=== PATIENT | male | born 1960 | race Caucasian/White ===

== ENCOUNTER 2018-05-23 21:09 | Inpatient (IN) ==
[2018-05-24] MEDS ORDERED: Bisacodyl 10 MG Supp RECTAL PRN (03:38)
--- NOTE | 2018-05-24 06:11 | P.HPIM ---
History of Present Illness [facility]: [facility] Primary Care Physician: No Primary Care Physician Chief Complaint: "My butt hurts" History of Present Illness: Mr. Stewart is a 58-year-old male with a history of hypertension, and undiagnosed movement disorder who was transferred back from [facility] where he underwent emergency repair of thoracic aortic dissection on 05/10/2018 (Dr. Ashraf). 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 The patient is seen on the unit shortly after arrival and following extensive record review from [facility]. He reports "my butt hurts" from sitting. He reports no knowledge of having an embolic stroke postoperatively from his thoracic aortic aneurysm repair. He reports his left-sided weakness is chronic for the past 5-6 years from a "pulled pectoral muscle". He does have right upper extremity tremors that seem to be present sometimes and not present at other times and have little association with intention. He denies any recent chest pain, shortness of breath, fevers, chills, nausea, vomiting, or diarrhea. After extensive review of his medical record, I was able to locate his MRI report which showed multiple foci of restricted diffusion, largest in the right posterior frontal lobe measuring approximately 1 cm in greatest diameter with multiple other small foci of restricted diffusion right temporal and occipital, left temporal, high left posterior frontal, and high left parietal suggesting a proximal embolic shower possibly related to patient's recent aortic surgery. Also noted were multiple, at least 10-11, foci of chronic microhemorrhage bilaterally. MRA of head and neck were normal. Dated 05/14/18. Inpatient Certification: I certify that the inpatient services were ordered in accordance with Medicare regulations governing the order. This includes certification that hospital inpatient services are reasonable and necessary and in the case of services not specified as inpatient-only under 42 CFR 419.22(n), that they are appropriately provided as inpatient services in accordance to with the 2-midnight benchmark under 43 CFR 412.3(e) Estimated Total Length of Stay (Days): 3 Plans for Post Hospital Care: Not yet determined Review of Systems All other systems reviewed negative except as stated in HPI [facility] - History History Provided By: Patient - Medical History Medical History: Medical History (Last Updated 05/24/18 @ 05:25 by KRISSY Cyr) HTN (hypertension) (Acute) Alcohol abuse Embolic stroke Onset Date: ~05/14/18 Movement disorder Thoracic aortic dissection Anxiety - Surgical History Surgical History: Surgical History (Last Updated 05/24/18 @ 04:24 by KRISSY Cyr) History of ascending aortic replacement - Family History Family History: Family History (Last Updated 05/24/18 @ 05:37 by KRISSY Cyr) Uncle Myocardial infarction Grandparent CVA (cerebral vascular accident) Father CVA (cerebral vascular accident) - Social History I have reviewed the patient's Social History: Yes - Tobacco History Second Hand Smoke Exposure: No Smoking Status: Former smoker Tobacco Type: Smokeless Tobacco - Alcohol History How Often Do You Have a Drink Containing Alcohol: Never - Substance Use History Substance History: No History of Abuse - Immunization History Hx Influenza Vaccine This Season: Yes Medications and Allergies Active Medications: Active Medications Acetaminophen (Tylenol) 650 mg PO Q4H PRN PRN Reason: Temp > 100.4 Alprazolam (Xanax) 0.5 mg PO BID PRN PRN Reason: ANXIETY Aspirin (Aspirin Chew) 81 mg PO DAILY [facility] Atorvastatin Calcium (Lipitor) 40 mg PO HS [facility] Bisacodyl (Dulcolax Supp) 10 mg RECTAL DAILY PRN PRN Reason: SEVERE CONSITIPATION Docusate Sodium (Colace) 100 mg PO BID [facility] Furosemide (Lasix) 20 mg PO DAILY [facility] Gabapentin (Neurontin) 200 mg PO TID [facility] Heparin Sodium (Porcine) (Heparin Inj) 5,000 units SQ Q8HR [facility] Lactulose (Lactulose Liq) 15 ml PO TID [facility] Melatonin (Melatonin) 5 mg PO HS PRN PRN Reason: INSOMNIA Multivitamins (Theragran) 1 tab PO DAILY [facility] Niacin (Niacin) 50 mg PO HS [facility] Ondansetron HCl (Zofran Inj) 4 mg IV.PUSH Q6H PRN PRN Reason: NAUSEA OR VOMITING Oxycodone HCl (Roxicodone) 5 mg PO Q4H PRN PRN Reason: pain > 3 Last Admin: 05/24/18 04:45 Dose: 5 mg Potassium Chloride (Klor-Con 10) 20 meq PO DAILY [facility] Propranolol HCl (Inderal) 30 mg PO TID [facility] Sennosides (Senokot) 17.2 mg PO Q12H PRN PRN Reason: Moderate Constipation Simethicone (Mylicon Chew) 80 mg PO Q8H PRN PRN Reason: FLATULENCE Sodium Chloride (Ns Flush) 2 ml IV.FLUSH BID [facility] Sodium Chloride (Ns Flush) 2 ml IV.FLUSH PRN PRN PRN Reason: FLUSH AFTER USING IV ACCESS Vitamin D (Vitamin D3) 400 unit PO DAILY [facility] Allergies Allergy/AdvReac Type Severity Reaction Status Date / Time No Known Allergies Allergy Verified 05/10/18 13:01 Home Medications Medication Instructions Recorded Confirmed Type No Known Home Medications 05/10/18 05/10/18 History Exam Vital signs: Intake & Output 05/23/18 05/23/18 05/24/18 06:59 18:59 06:59 Weight 83.6 kg Other: Weight On Admission 83.6 kg Narrative: GENERAL: This is a well-nourished, well-developed patient, with right upper extremity tremor. SKIN: Cool and dry. Midsternal incision with wound edges well approximated no signs of infection. Bilateral lower extremities with dry skin noted. HEAD: Atraumatic. Normocephalic. EYES: No scleral icterus. No injection or drainage. ENT: Nose without bleeding, purulent drainage. NECK: Trachea midline. No JVD or lymphadenopathy. CARDIOVASCULAR: Regular rate and rhythm without murmurs, gallops, or rubs. RESPIRATORY: Breath sounds diminished at bases but equal bilaterally. No wheezes , rales, or rhonchi. GASTROINTESTINAL: Abdomen soft, non-tender, nondistended. No guarding. MUSCULOSKELETAL: Extremities without clubbing, cyanosis, or edema. No calf tenderness. NEUROLOGICAL: Awake and alert. Right upper extremity tremor -intermittent. Left-sided weakness. Normal speech. PSYCHIATRIC: Anxious but cooperative. . Caprini VTE Risk Assessment Caprini VTE Risk Assessment: Moderate/High Risk (score >= 2) Caprini Risk Assessment Model: Point Value = 1 Point Value = 2 Point Value = 3 Point Value = 5 Age 41-60 Minor surgery BMI > 25 kg/m2 Swollen legs Varicose veins or History of unexplained or recurrent spontaneous Oral contraceptives or hormone replacement Sepsis (< 1 month) Serious lung disease, including pneumonia (< 1 month) Abnormal pulmonary function Acute myocardial infarction Congestive heart failure (< 1 month) History of inflammatory bowel disease Medical patient at bed rest Age 61-74 Arthroscopic surgery Major open surgery (> 45 min) Laparoscopic surgery (> 45 min) Malignancy Confined to bed (> 72 hours) Immobilizing plaster cast Central venous access Age >= 75 History of VTE Family history of VTE Factor V Leiden Prothrombin [id number] Lupus anticoagulant Anticardiolipin antibodies Elevated serum homocysteine Heparin-induced thrombocytopenia Other congenital or acquired thrombophilia Stroke (< 1 month) Elective arthroplasty Hip, pelvis, or leg fracture Acute spinal cord injury (< 1 month) Prophylaxis Regimen: Total Risk Factor Score Risk Level Prophylaxis Regimen 0-1 Low Early ambulation 2 Moderate Order ONE of the following: *Sequential Compression Device (SCD) *Heparin 5000 units SQ BID 3-4 Higher Order ONE of the following medications: *Heparin 5000 units SQ TID *Enoxaparin/Lovenox 40 mg SQ daily (WT < 150 kg, CrCl > 30 mL/min) *Enoxaparin/Lovenox 30 mg SQ daily (WT < 150 kg, CrCl > 10-29 mL/min) *Enoxaparin/Lovenox 30 mg SQ BID (WT < 150 kg, CrCl > 30 mL/min) AND/OR *Sequential Compression Device (SCD) 5 or more Highest Order ONE of the following medications: *Heparin 5000 units SQ TID (Preferred with Epidurals) *Enoxaparin/Lovenox 40 mg SQ daily (WT < 150 kg, CrCl > 30 mL/min) *Enoxaparin/Lovenox 30 mg SQ daily (WT < 150 kg, CrCl > 10-29 mL/min) *Enoxaparin/Lovenox 30 mg SQ BID (WT < 150 kg, CrCl > 30 mL/min) AND *Sequential Compression Device (SCD) Assessment and Plan - Plan Mr. Stewart is a 58-year-old male with a history of hypertension, and undiagnosed movement disorder who was transferred back from [facility] where he underwent emergency repair of thoracic aortic dissection on 05/10/2018 (Dr. Ashraf). 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 S/P Thoracic aortic aneurysm repair by Dr. Ashraf at 05-10-18 -Continue medications as recommended on discharge -Monitor vital signs -Oxycodone 5 mg every 4 hours as needed for pain with 5 mg every 6 hours as needed for breakthrough pain -start weaning narcotics -He will need to follow-up with Dr. Ashraf per recommendations from [facility] -Cardiac diet Embolic CVA -From [facility]: MRI report which showed multiple foci of restricted diffusion, largest in the right posterior frontal lobe measuring approximately 1 cm in greatest diameter with multiple other small foci of restricted diffusion right temporal and occipital, left temporal, high left posterior frontal, and high left parietal suggesting a proximal embolic shower possibly related to patient' s recent aortic surgery. Also noted were multiple, at least 10-11, foci of chronic microhemorrhage bilaterally. MRA of head and neck were normal. Dated 05/14/18. -Consult neurology -appreciate assistance with further recommendations -Consult physical therapy, occupational therapy, and speech therapy -Continuous cardiac telemetry to monitor for arrhythmia -Out of bed with assistance undiagnosed movement disorder/tremor -The patient was evaluated for seizures at and was even started on Cerebyx at one point in time and then discontinued following EEG testing/seizure r/o -Patient attributes tremors to anxiety and Xanax as needed was restarted from [facility] -Can follow-up with neurology as an outpatient for further evaluation Hypertension -Continue Inderal from [facility] -Monitor trends in blood pressure readings and adjust treatments as indicated DVT prophylaxis -Continue heparin 5000 units every 8 hours Case management consult to assist with discharge planning H&P: Quality - VTE Deep Vein Thrombosis/Pulmonary Embolism Present on Admission: No
[2018-05-24] MEDS: Heparin - SQ 10,000 UNITS/ML Vial SQ SCH ×4 (06:35→22:01)
[2018-05-24] MEDS: ALPRAZolam 0.5 MG Tablet PO PRN ×2 (08:38→20:32)
[2018-05-24] MEDS: Gabapentin 100 MG Capsule PO SCH ×3 (08:38→17:52)
[2018-05-24] MEDS: Docusate Sodium 100 MG Capsule PO SCH ×2 (08:39→20:36)
[2018-05-24] MEDS: Furosemide 20 MG Tablet PO SCH (08:40)
[2018-05-24] MEDS: Simethicone 80 MG Chew Tablet PO PRN (09:07)
[2018-05-24 11:15] LABS: Baso # (Auto) 0.1 th/mm3 (0.0-0.2); Baso % (Auto) 0.9 % (0.0-2.0); Eos # (Auto) 0.1 th/mm3 (0.0-0.4); Hematocrit 35.1 % (39.0-51.0); Hemoglobin 12.2 gm/dL (13.0-17.0); Lymph # (Auto) 1.5 th/mm3 (1.0-4.8); Lymph % (Auto) 10.3 % (9.0-44.0); Mean Corpuscular HGB Conc 34.8 % (32.0-36.0); Mean Corpuscular Volume 91.9 fL (80.0-100.0); Mean Platelet Volume 7.9 fL (7.0-11.0); Mono # (Auto) 1.3 th/mm3 (0.0-0.9); Mono % (Auto) 8.7 % (0.0-8.0); Neut # (Auto) 11.8 th/mm3 (1.8-7.7); Neut % (Auto) 79.1 % (16.0-70.0); Platelet Count 505 th/mm3 (150-450); Red Blood Count 3.82 mil/mm3 (4.50-5.90); Red Cell Distribution Width 13.4 % (11.6-17.2); White Blood Count 14.9 th/mm3 (4.0-11.0)
[2018-05-24 11:36] LABS: Albumin 2.9 g/dL (3.4-5.0); Anion Gap 9 meq/L (5-15); Aspartate Aminotransferase 39 U/L (15-37); Blood Urea Nitrogen 13 mg/dL (7-18); Calcium 8.7 mg/dL (8.5-10.1); Chloride 101 meq/L (98-107); Glomerular Filtration Rate Greater Than 89 mL/min (>89); Glucose,Random 115 mg/dL (74-106); Potassium 4.2 meq/L (3.5-5.1); Sodium 138 meq/L (136-145)
[2018-05-24 11:40] LABS: Alanine Aminotransferase 73 U/L (12-78); Alkaline Phosphatase 119 U/L (45-117); Total Protein 7.6 g/dL (6.4-8.2)
[2018-05-24] MEDS: Acetaminophen 325 MG Tablet PO PRN (12:13)
--- NOTE | 2018-05-24 13:09 | P.PNIM ---
Subjective Interval history: Patient is laying down in bed with family at bedside. Currently he does not have any complaints. Physical Exam Vital signs: Vital Signs 05/24/18 02:30 05/24/18 05:00 05/24/18 06:32 Temperature 98.2 F Pulse Rate 79 64 Respiratory Rate 17 18 20 Blood Pressure 127/77 132/72 Pulse Oximetry 95 96 05/24/18 08:00 05/24/18 12:00 Temperature 97.4 F L 97.6 F Pulse Rate 74 68 Respiratory Rate 17 17 Blood Pressure 147/82 H 111/60 Pulse Oximetry 96 94 L Intake & Output 05/23/18 05/24/18 05/24/18 18:59 06:59 18:59 Intake Total 300 / 300 Output Total 2250 / 2250 Balance -1949 / -1949 Weight 82.7 kg Intake: Oral 300 / 300 Output: Urine 2250 / 2250 Other: Date of Last Bowel Movement 05/23/18 Weight On Admission 83.6 kg Narrative: General he is lying down in bed. HEENT extraocular movements are intact, clear oropharyngeal mucosa, no JVD Cardiovascular S1-S2 audible, vertical well healing wound on the center of the patient's chest. Respiratory clear to auscultation bilaterally Abdomen soft, nontender, nondistended, normal bowel sounds Extremities no edema 2+ distal pulses in bilateral upper and lower extremities Neuro patient moves all 4 extremities, The patient has a resting tremor of bilateral upper extremities noted on physical examination. Cerebellar signs are intact. Sensation is intact in both upper and lower extremities. When asked to stop moving his hands the patient is able to stop the tremors. Negative Babinski. Results - Labs CBC & Chem 7: 05/24/18 10:22 05/24/18 10:22 Laboratory Results - last 24 hr 05/24/18 05/24/18 10:22 10:22 WBC 14.9 H RBC 3.82 L Hgb 12.2 L Hct 35.1 L MCV 91.9 MCH 32.0 MCHC 34.8 RDW 13.4 Plt Count 505 H D MPV 7.9 Neut % (Auto) 79.1 H Lymph % (Auto) 10.3 [place] % (Auto) 8.7 H Eos % (Auto) 1.0 Baso % (Auto) 0.9 Neut # (Auto) 11.8 H Lymph # (Auto) 1.5 [place] # (Auto) 1.3 H Eos # (Auto) 0.1 Baso # (Auto) 0.1 WBC Differential . Differential Comment Auto diff final Sodium 138 Potassium 4.2 Chloride 101 Carbon Dioxide 28.0 Anion Gap 9 BUN 13 Creatinine 0.79 Estimated GFR Greater than 89 Random Glucose 115 H Calcium 8.7 Total Bilirubin 0.4 AST 39 H ALT 73 Alkaline Phosphatase 119 H Total Protein 7.6 Albumin 2.9 L Assessment and Plan - Plan Patient is a 58-year-old male with a diagnosis of hypertension, undiagnosed movement disorder. The patient was transferred back from [facility] where he underwent emergency repair of a thoracic aortic dissection on 05/10/[address] Ashraf. 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 As per documentation MRI report shows restricted areas of diffusion largest in the right posterior frontal lobe measuring approximately 1 cm as well as multiple other areas of the brain. MRA of the head and neck were normal. 1. Status post thoracic aortic aneurysm repair on 05/10/2018 Procedure done at [facility] by Dr. Ashraf. The patient vital signs and hemoglobin are stable. Patient was evaluated by speech therapy, recommendations are thin liquids and regular diet. Continue aspirin, statin. 2. Embolic CVA Patient's MRI showed the findings mentioned above. Neurology consulted, I would appreciate their recommendations. Physical therapy and occupational therapy evaluation is pending Continue to monitor on telemetry. Continue aspirin, statin 3. Undiagnosed movement disorder/tremor Patient has a resting tremor of bilateral upper extremities on my physical examination. As per the augmentation the patient was evaluated for seizures at [facility]. Patient claims that his tremors are due to anxiety which she has had over the past couple of years. We will await recommendations from neurology. Continue gabapentin. Continue Xanax. 4. Hypertension Patient currently on propanolol 3 times daily. Blood pressures currently under control. We will continue to monitor his blood pressure and adjust his medications if needed. DVT prophylaxis, the patient is currently on heparin. Discharge planning, the case will be discussed with case management.
--- NOTE | 2018-05-24 13:55 | MB ---
cc: Lizabeth Mercado MD DATE: 05/24/2018 REASON FOR CONSULTATION: Tremor, right upper extremity. HISTORY OF PRESENT ILLNESS: The patient is a 58-year-old man with a history of hypertension, undiagnosed movement disorder, recent emergent thoracic aortic dissection repair on 05/10/2018, postoperative embolic stroke with some left-sided weakness. The patient was transferred back here for ongoing stabilization. His [id number] is here with him at bedside and states, as well as the patient states, he has had a tremor in the right hand, mostly with rest for at least 2 years. She states that he does ambulate a little flexed forward and at times tends to shuffle. They did not report any tremor in the leg or the contralateral side. He denies having any trouble swallowing. She does admit that he does have a decrease animation of the face, looks like a masked facies. He denies any severe constipation. Denies trouble eating or swallowing food. He was not diagnosed with any type of tremor at [facility]. Hence, neurology is consulted. PHYSICAL EXAMINATION: I see a 58-year-old man lying in bed with decreased blink, mask-like facies. He has some residual left hemiparesis from his stroke, attenuated left nasolabial fold, tongue midline, but he does have increased tone at the right elbow and right wrist with some mild cogwheeling. He does exhibit a tremor at rest that looks pill rolling. When the tremor starts and I ask him to lift his hand up, it ceases, dissipates. On [id number], there is no past pointing. No increased tone on the right leg. No tremor on that side. Gait is withheld at this time. LABORATORY DATA: Reviewed. MEDICATIONS: They have been giving him Xanax b.i.d. p.r.n., baby aspirin, Lipitor. He is on gabapentin as well. IMPRESSION: This is a 58-year-old man with onset tremor of at least 2 years in the right upper extremity. It does look pill rolling and looks very much like a Parkinson-like tremor. He has some other signs of rigidity, facial masking, stooped gait per family. At this point, I think what we should do is to start him on some Sinemet 25/100 three times a day. Certainly, Mirapex or Requip can be considered as well, but I want to see if he improves with the Sinemet. I did tell them and explain to them my thoughts. We will have physical therapy ambulate him and continue working with him and hopefully the medicine will help control his symptoms. I did tell him that it is best to get these medications on an empty stomach. We will be monitoring him while hospitalized and further recommendations will be made. MD FELICITA Pugh/victor manuel , 12:44 PM , 12:52 PM
[2018-05-25] MEDS: Heparin - SQ 10,000 UNITS/ML Vial SQ SCH ×3 (05:49→21:10)
[2018-05-25] MEDS: ALPRAZolam 0.5 MG Tablet PO PRN ×2 (08:35→21:09)
[2018-05-25] MEDS: Gabapentin 100 MG Capsule PO SCH ×3 (08:36→17:39)
[2018-05-25] MEDS: Docusate Sodium 100 MG Capsule PO SCH ×2 (08:36→21:10)
[2018-05-25] MEDS: Furosemide 20 MG Tablet PO SCH (08:36)
--- NOTE | 2018-05-25 10:27 | P.PNIM ---
Subjective Interval history: Patient laying down in bed. In no acute distress. No resting tremor of his upper extremities on evaluation today. Physical Exam Vital signs: Vital Signs 05/24/18 12:00 05/24/18 16:00 05/24/18 20:00 Temperature 97.6 F 97.3 F L 97.3 F L Pulse Rate 68 65 72 Respiratory Rate 17 17 20 Blood Pressure 111/60 94/57 L 120/69 Pulse Oximetry 94 L 95 97 05/24/18 22:01 05/25/18 00:00 05/25/18 03:23 Temperature 97.7 F Pulse Rate 72 Respiratory Rate 20 18 18 Blood Pressure 109/64 Pulse Oximetry 95 05/25/18 04:00 Temperature 97.9 F Pulse Rate 72 Respiratory Rate 18 Blood Pressure 113/59 L Pulse Oximetry 96 Intake & Output 05/24/18 05/25/18 05/25/18 18:59 06:59 18:59 Intake Total 320 / 320 Output Total 1150 / 1150 2100 / 2100 Balance -1150 / -1150 -1780 / -1780 Weight 83.6 kg Intake: Oral 320 / 320 Output: Urine 1150 / 1150 2099 / 2100 Other: # Voids 7 Date of Last Bowel Movement 05/23/18 05/24/18 # Bowel Movements 1 Narrative: General he is lying down in bed. HEENT extraocular movements are intact, clear oropharyngeal mucosa, no JVD Cardiovascular S1-S2 audible, vertical well healing wound on the center of the patient's chest. Respiratory clear to auscultation bilaterally Abdomen soft, nontender, nondistended, normal bowel sounds Extremities no edema 2+ distal pulses in bilateral upper and lower extremities Neuro patient moves all 4 extremities, the patient's resting tremors that were observed yesterday have improved. Cerebellar signs are intact. Sensation is intact in both upper and lower extremities. Results - Labs CBC & Chem 7: 05/24/18 10:22 05/24/18 10:22 Laboratory Results - last 24 hr 05/24/18 05/24/18 10:22 10:22 WBC 14.9 H RBC 3.82 L Hgb 12.2 L Hct 35.1 L MCV 91.9 MCH 32.0 MCHC 34.8 RDW 13.4 Plt Count 505 H D MPV 7.9 Neut % (Auto) 79.1 H Lymph % (Auto) 10.3 [place] % (Auto) 8.7 H Eos % (Auto) 1.0 Baso % (Auto) 0.9 Neut # (Auto) 11.8 H Lymph # (Auto) 1.5 [place] # (Auto) 1.3 H Eos # (Auto) 0.1 Baso # (Auto) 0.1 WBC Differential . Differential Comment Auto diff final Sodium 138 Potassium 4.2 Chloride 101 Carbon Dioxide 28.0 Anion Gap 9 BUN 13 Creatinine 0.79 Estimated GFR Greater than 89 Random Glucose 115 H Calcium 8.7 Total Bilirubin 0.4 AST 39 H ALT 73 Alkaline Phosphatase 119 H Total Protein 7.6 Albumin 2.9 L Assessment and Plan - Plan Patient is a 58-year-old male with a diagnosis of hypertension, undiagnosed movement disorder. The patient was transferred back from [facility] where he underwent emergency repair of a thoracic aortic dissection on 05/10/[address] Ashraf. 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 As per documentation MRI report shows restricted areas of diffusion largest in the right posterior frontal lobe measuring approximately 1 cm as well as multiple other areas of the brain. MRA of the head and neck were normal. 1. Status post thoracic aortic aneurysm repair on 05/10/2018 Procedure done at [facility] by Dr. Ashraf. The patient vital signs and hemoglobin are stable. No significant change from yesterday. Patient was evaluated by speech therapy, recommendations are thin liquids and regular diet. Continue aspirin, statin. 2. Embolic CVA Patient's MRI showed the findings mentioned above. Physical therapy and occupational therapy evaluation is pending Continue to monitor on telemetry. Continue aspirin, statin No change in the patients neuro examination. 3. Undiagnosed movement disorder/tremor Patient had a resting tremor of bilateral upper extremities on my physical examination yesterday, no tremor noted today. His physical examination is concerning for possible parkinsons disease. Carbidopa/Levodopa started. As per the augmentation the patient was evaluated for seizures at [facility]. Neurology following. Continue gabapentin. Continue Xanax. Continue PT 4. Hypertension Patient currently on propanolol 3 times daily. Blood pressures currently under control. We will continue to monitor his blood pressure and adjust his medications if needed. DVT prophylaxis, the patient is currently on heparin. Discharge planning, Patient will need rehab once he is ready for discharge.
[2018-05-25] MEDS: Simethicone 80 MG Chew Tablet PO PRN (14:24)
[2018-05-26] MEDS: Heparin - SQ 10,000 UNITS/ML Vial SQ SCH ×3 (06:03→20:59)
[2018-05-26 07:37] LABS: Baso # (Auto) 0.1 th/mm3 (0.0-0.2); Eos # (Auto) 0.2 th/mm3 (0.0-0.4); Eos % (Auto) 1.7 % (0.0-4.0); Hematocrit 34.1 % (39.0-51.0); Hemoglobin 11.1 gm/dL (13.0-17.0); Lymph # (Auto) 1.7 th/mm3 (1.0-4.8); Lymph % (Auto) 15.2 % (9.0-44.0); Mean Corpuscular HGB Conc 32.7 % (32.0-36.0); Mean Corpuscular Hemoglobin 30.7 pg (27.0-34.0); Mean Platelet Volume 7.9 fL (7.0-11.0); Mono % (Auto) 8.7 % (0.0-8.0); Neut # (Auto) 8.4 th/mm3 (1.8-7.7); Neut % (Auto) 73.4 % (16.0-70.0); Platelet Count 392 th/mm3 (150-450); Red Blood Count 3.63 mil/mm3 (4.50-5.90); Red Cell Distribution Width 13.7 % (11.6-17.2); White Blood Count 11.5 th/mm3 (4.0-11.0)
[2018-05-26 08:00] LABS: Anion Gap 7 meq/L (5-15); Blood Urea Nitrogen 16 mg/dL (7-18); Calcium 8.4 mg/dL (8.5-10.1); Carbon Dioxide 28.7 meq/L (21.0-32.0); Chloride 105 meq/L (98-107); Glomerular Filtration Rate Greater Than 89 mL/min (>89); Glucose,Random 106 mg/dL (74-106); Magnesium 2.2 mg/dL (1.5-2.5); Potassium 4.6 meq/L (3.5-5.1); Sodium 141 meq/L (136-145)
[2018-05-26] MEDS: Docusate Sodium 100 MG Capsule PO SCH ×2 (08:27→20:58)
[2018-05-26] MEDS: Gabapentin 100 MG Capsule PO SCH ×3 (08:27→18:00)
[2018-05-26] MEDS: Furosemide 20 MG Tablet PO SCH (08:28)
[2018-05-26 08:33] LABS: Eosinophils 1 % (0-4); Lymphocytes 14 % (9-44); Metamyelocytes 4 % (0-1); Monocytes 9 % (0-8); Myelocytes 4 % (0-0); Platelet Estimate Normal (Normal); Platelet Morphology Normal (Normal); RBC Morphology Normal (Normal)
--- NOTE | 2018-05-26 12:17 | P.PNIM ---
Subjective Interval history: Chief Complaint: "My butt hurts" History of Present Illness: Mr. Stewart is a 58-year-old male with a history of hypertension, and undiagnosed movement disorder who was transferred back from [facility] where he underwent emergency repair of thoracic aortic dissection on 05/10/2018 (Dr. Ashraf). 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 The patient is seen on the unit shortly after arrival and following extensive record review from [facility]. He reports "my butt hurts" from sitting. He reports no knowledge of having an embolic stroke postoperatively from his thoracic aortic aneurysm repair. He reports his left-sided weakness is chronic for the past 5-6 years from a "pulled pectoral muscle". He does have right upper extremity tremors that seem to be present sometimes and not present at other times and have little association with intention. He denies any recent chest pain, shortness of breath, fevers, chills, nausea, vomiting, or diarrhea. After extensive review of his medical record, I was able to locate his MRI report which showed multiple foci of restricted diffusion, largest in the right posterior frontal lobe measuring approximately 1 cm in greatest diameter with multiple other small foci of restricted diffusion right temporal and occipital, left temporal, high left posterior frontal, and high left parietal suggesting a proximal embolic shower possibly related to patient's recent aortic surgery. Also noted were multiple, at least 10-11, foci of chronic microhemorrhage bilaterally. MRA of head and neck were normal. Dated 05/14/18. 05-24 Patient is laying down in bed with family at bedside. Currently he does not have any complaints. 12-1 Patient laying down in bed. In no acute distress. No resting tremor of his upper extremities on evaluation today. 12-2 SEEN SITTING IN CHAIR WITH FAMILY DENIES ANY NEW LEFT SIDE WEAKNESS- FAMILY STATES IT IS CHRONIC FEELS WEEK NO CURRENT TREMORS Physical Exam Vital signs: Vital Signs 05/25/18 16:00 05/25/18 20:00 05/26/18 00:00 Temperature 97.3 F L 97.4 F L 98.1 F Pulse Rate 68 73 70 Respiratory Rate 18 Blood Pressure 103/56 L 143/76 H 101/55 L Pulse Oximetry 95 96 95 05/26/18 04:00 05/26/18 08:00 05/26/18 09:42 Temperature 98.2 F 98.7 F 97.5 F L Pulse Rate 67 75 75 Respiratory Rate 17 16 18 Blood Pressure 131/56 L 120/60 131/71 Pulse Oximetry 95 96 96 Intake & Output 05/25/18 05/26/18 05/26/18 18:59 06:59 18:59 Intake Total 240 / 240 Output Total 2400 / 2400 Balance -2160 / -2160 Weight 83.5 kg Intake: Oral 240 / 240 Output: Urine 2400 / 2400 Other: Date of Last Bowel Movement 05/25/18 # Bowel Movements 1 Narrative: Awake alert and oriented x3 talkative and cooperative General he is sitting at the chair at the side of the bed HEENT extraocular movements are intact, clear oropharyngeal mucosa, no JVD Cardiovascular S1-S2 audible, vertical well healing wound on the center of the patient's chest. Respiratory clear to auscultation bilaterally Abdomen soft, nontender, nondistended, normal bowel sounds Extremities no edema 2+ distal pulses in bilateral upper and lower extremities Neuro patient moves all 4 extremities, the patient's resting tremors that were observed yesterday have improved. Cerebellar signs are intact. Sensation is intact in both upper and lower extremities. No current resting tremors observed at this time Results - Labs CBC & Chem 7: 05/26/18 06:28 05/26/18 06:28 Laboratory Results - last 24 hr 05/26/18 05/26/18 05/26/18 06:28 06:28 09:19 WBC 11.5 H RBC 3.63 L Hgb 11.1 L Hct 34.1 L MCV 94.0 MCH 30.7 MCHC 32.7 RDW 13.7 Plt Count 392 MPV 7.9 Prelim Diff (Auto) Slide review pending Neut % (Auto) 73.4 H Lymph % (Auto) 15.2 [place] % (Auto) 8.7 H Eos % (Auto) 1.7 Baso % (Auto) 1.0 Neut # (Auto) 8.4 H Lymph # (Auto) 1.7 [place] # (Auto) 1.0 H Eos # (Auto) 0.2 Baso # (Auto) 0.1 WBC Differential Manual diff final Seg Neuts % (Manual) 65 Band Neuts % (Manual) 3 Lymphocytes % (Manual) 14 Monocytes % (Manual) 9 H Eosinophils % (Manual) 1 Metamyelocytes % (Man) 4 H Myelocytes % (Man) 4 H Abs Neuts (Manual) 8.7 H Differential Comment . Platelet Estimate Normal Platelet Morphology Normal RBC Morphology Normal Sodium 141 Potassium 4.6 Chloride 105 Carbon Dioxide 28.7 Anion Gap 7 BUN 16 Creatinine 0.81 Estimated GFR Greater than 89 POC Glucose 142 H Random Glucose 106 Calcium 8.4 L Magnesium 2.2 Assessment and Plan - Plan Patient is a 58-year-old male with a diagnosis of hypertension, undiagnosed movement disorder. The patient was transferred back from [facility] where he underwent emergency repair of a thoracic aortic dissection on 05/10/[address] Ashraf. 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 As per documentation MRI report shows restricted areas of diffusion largest in the right posterior frontal lobe measuring approximately 1 cm as well as multiple other areas of the brain. MRA of the head and neck were normal. 1. Status post thoracic aortic aneurysm repair on 05/10/2018 Procedure done at [facility] by Dr. Ashraf. The patient vital signs and hemoglobin are stable. No significant change from yesterday. Patient was evaluated by speech therapy, recommendations are thin liquids and regular diet. Continue aspirin, statin. 2. Embolic CVA Patient's MRI showed the findings mentioned above. Physical therapy and occupational therapy evaluation is pending Continue to monitor on telemetry. Continue aspirin, statin No change in the patients neuro examination. 3. Undiagnosed movement disorder/tremor Patient had a resting tremor of bilateral upper extremities on my physical examination yesterday, no tremor noted today. His physical examination is concerning for possible parkinsons disease. Carbidopa/Levodopa started. As per THE RECORDS the patient was evaluated for seizures at [facility]. Neurology following. Continue gabapentin. Continue Xanax. Continue PT 4. Hypertension Patient currently on propanolol 3 times daily. Blood pressures currently under control. We will continue to monitor his blood pressure and adjust his medications if needed. DVT prophylaxis, the patient is currently on heparin. Discharge planning, Patient will need rehab once he is ready for discharge. Code Status: FULL CODE Discussed Condition With: RN AND PT AND FAMILY AND CM Discharge Planning: PENDING IMPROVEMENT IN MOVEMENT
[2018-05-26] MEDS: Simethicone 80 MG Chew Tablet PO PRN (13:00)
[2018-05-26] MEDS: ALPRAZolam 0.5 MG Tablet PO PRN (15:16)
[2018-05-27 05:13] LABS: Baso # (Auto) 0.1 th/mm3 (0.0-0.2); Baso % (Auto) 1.2 % (0.0-2.0); Eos # (Auto) 0.2 th/mm3 (0.0-0.4); Hematocrit 32.4 % (39.0-51.0); Lymph % (Auto) 16.5 % (9.0-44.0); Mean Corpuscular Hemoglobin 31.3 pg (27.0-34.0); Mean Corpuscular Volume 92.3 fL (80.0-100.0); Mean Platelet Volume 7.9 fL (7.0-11.0); Mono % (Auto) 8.3 % (0.0-8.0); Neut # (Auto) 8.7 th/mm3 (1.8-7.7); Platelet Count 381 th/mm3 (150-450); Red Blood Count 3.51 mil/mm3 (4.50-5.90); Red Cell Distribution Width 13.3 % (11.6-17.2)
[2018-05-27 05:23] LABS: Prothrombin Time 10.6 sec (9.8-11.6)
[2018-05-27 05:31] LABS: Albumin 2.5 g/dL (3.4-5.0); Anion Gap 5 meq/L (5-15); Blood Urea Nitrogen 16 mg/dL (7-18); Calcium 8.8 mg/dL (8.5-10.1); Chloride 106 meq/L (98-107); Glomerular Filtration Rate Greater Than 89 mL/min (>89); Glucose,Random 95 mg/dL (74-106); Magnesium 2.3 mg/dL (1.5-2.5); Potassium 4.2 meq/L (3.5-5.1); Sodium 140 meq/L (136-145)
[2018-05-27 05:33] LABS: Aspartate Aminotransferase 25 U/L (15-37)
[2018-05-27] MEDS: Heparin - SQ 10,000 UNITS/ML Vial SQ SCH ×3 (05:42→22:35)
[2018-05-27 05:43] LABS: Alanine Aminotransferase 34 U/L (12-78); Alkaline Phosphatase 104 U/L (45-117); Free T4 (Free Thyroxine) 1.19 ng/dL (0.76-1.46); Phosphorus 4.1 mg/dL (2.5-4.9); Total Protein 6.5 g/dL (6.4-8.2)
[2018-05-27 06:59] LABS: Lymphocytes 7 % (9-44); Metamyelocytes 2 % (0-1); Monocytes 6 % (0-8); Myelocytes 4 % (0-0)
[2018-05-27 07:00] LABS: Platelet Estimate Normal (Normal); Platelet Morphology Normal (Normal)
[2018-05-27] MEDS: Docusate Sodium 100 MG Capsule PO SCH ×2 (08:00→20:11)
[2018-05-27] MEDS: Gabapentin 100 MG Capsule PO SCH ×3 (08:01→17:31)
[2018-05-27] MEDS: Furosemide 20 MG Tablet PO SCH (08:01)
[2018-05-27] MEDS: Acetaminophen 325 MG Tablet PO PRN ×2 (09:48→20:11)
--- NOTE | 2018-05-27 11:27 | P.PNIM ---
Subjective Interval history: Chief Complaint: "My butt hurts" History of Present Illness: Mr. Stewart is a 58-year-old male with a history of hypertension, and undiagnosed movement disorder who was transferred back from [facility] where he underwent emergency repair of thoracic aortic dissection on 05/10/2018 (Dr. Ashraf). 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 The patient is seen on the unit shortly after arrival and following extensive record review from [facility]. He reports "my butt hurts" from sitting. He reports no knowledge of having an embolic stroke postoperatively from his thoracic aortic aneurysm repair. He reports his left-sided weakness is chronic for the past 5-6 years from a "pulled pectoral muscle". He does have right upper extremity tremors that seem to be present sometimes and not present at other times and have little association with intention. He denies any recent chest pain, shortness of breath, fevers, chills, nausea, vomiting, or diarrhea. After extensive review of his medical record, I was able to locate his MRI report which showed multiple foci of restricted diffusion, largest in the right posterior frontal lobe measuring approximately 1 cm in greatest diameter with multiple other small foci of restricted diffusion right temporal and occipital, left temporal, high left posterior frontal, and high left parietal suggesting a proximal embolic shower possibly related to patient's recent aortic surgery. Also noted were multiple, at least 10-11, foci of chronic microhemorrhage bilaterally. MRA of head and neck were normal. Dated 05/14/18. 05-24 Patient is laying down in bed with family at bedside. Currently he does not have any complaints. 12-1 Patient laying down in bed. In no acute distress. No resting tremor of his upper extremities on evaluation today. 12-2 SEEN SITTING IN CHAIR WITH FAMILY DENIES ANY NEW LEFT SIDE WEAKNESS- FAMILY STATES IT IS CHRONIC FEELS WEEK NO CURRENT TREMORS 12-3 CONTINUE PT AND OT NOT VERY MOBILE YET DW RN AND PT AND CM AND FAMILY WILL GET MRI HERE FOR COMPLETENESS AM LABS Physical Exam Vital signs: Vital Signs 05/26/18 12:00 05/26/18 16:00 05/26/18 20:00 Temperature 97.4 F L 98.3 F 97.9 F Pulse Rate 66 69 69 Respiratory Rate 18 18 18 Blood Pressure 107/64 115/65 142/87 H Pulse Oximetry 98 96 97 05/27/18 00:00 05/27/18 04:00 05/27/18 08:00 Temperature 97.7 F 97.8 F 97.7 F Pulse Rate 65 68 72 Respiratory Rate 17 18 16 Blood Pressure 99/53 L 104/56 L 122/80 Pulse Oximetry 96 95 98 Intake & Output 05/26/18 05/27/18 05/27/18 18:59 06:59 18:59 Intake Total 2400 / 2400 480 / 480 Output Total 1500 / 1500 2950 / 2950 Balance 900 / 900 -2470 / -2470 Weight 82.8 kg Intake: Oral 2400 / 2400 480 / 480 Output: Urine 1500 / 1500 2950 / 2950 Other: Date of Last Bowel Movement 05/26/18 05/27/18 # Bowel Movements 1 1 1 Narrative: Awake alert and oriented x3 talkative and cooperative General he is sitting at the chair at the side of the bed HEENT extraocular movements are intact, clear oropharyngeal mucosa, no JVD Cardiovascular S1-S2 audible, vertical well healing wound on the center of the patient's chest. Respiratory clear to auscultation bilaterally Abdomen soft, nontender, nondistended, normal bowel sounds Extremities no edema 2+ distal pulses in bilateral upper and lower extremities Neuro patient moves all 4 extremities, the patient's resting tremors that were observed yesterday have improved. Cerebellar signs are intact. Sensation is intact in both upper and lower extremities. No current resting tremors observed at this time Results - Labs CBC & Chem 7: 05/27/18 04:38 05/27/18 04:38 Laboratory Results - last 24 hr 05/27/18 05/27/18 05/27/18 04:38 04:38 04:38 WBC 12.0 H RBC 3.51 L Hgb 11.0 L Hct 32.4 L MCV 92.3 MCH 31.3 MCHC 34.0 RDW 13.3 Plt Count 381 MPV 7.9 Prelim Diff (Auto) Slide review pending Neut % (Auto) 72.0 H Lymph % (Auto) 16.5 [place] % (Auto) 8.3 H Eos % (Auto) 2.0 Baso % (Auto) 1.2 Neut # (Auto) 8.7 H Lymph # (Auto) 2.0 [place] # (Auto) 1.0 H Eos # (Auto) 0.2 Baso # (Auto) 0.1 WBC Differential Manual diff final Seg Neuts % (Manual) 72 H Band Neuts % (Manual) 8 H Lymphocytes % (Manual) 7 L Monocytes % (Manual) 6 Basophils % (Manual) 1 Metamyelocytes % (Man) 2 H Myelocytes % (Man) 4 H Abs Neuts (Manual) 10.3 H Differential Comment . Platelet Estimate Normal Platelet Morphology Normal PT 10.6 INR 1.0 Sodium 140 Potassium 4.2 Chloride 106 Carbon Dioxide 29.0 Anion Gap 5 BUN 16 Creatinine 0.73 Estimated GFR Greater than 89 Random Glucose 95 Calcium 8.8 Phosphorus 4.1 Magnesium 2.3 Total Bilirubin 0.3 AST 25 ALT 34 Alkaline Phosphatase 104 Total Protein 6.5 D Albumin 2.5 L TSH 1.390 Free T4 1.19 Assessment and Plan - Plan Patient is a 58-year-old male with a diagnosis of hypertension, undiagnosed movement disorder. The patient was transferred back from [facility] where he underwent emergency repair of a thoracic aortic dissection on 05/10/[address] Ashraf. 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 As per documentation MRI report shows restricted areas of diffusion largest in the right posterior frontal lobe measuring approximately 1 cm as well as multiple other areas of the brain. MRA of the head and neck were normal. 1. Status post thoracic aortic aneurysm repair on 05/10/2018 Procedure done at [facility] by Dr. Ashraf. The patient vital signs and hemoglobin are stable. No significant change from yesterday. Patient was evaluated by speech therapy, recommendations are thin liquids and regular diet. Continue aspirin, statin. 2. Embolic CVA Patient's MRI showed the findings mentioned above. Physical therapy and occupational therapy evaluation is pending Continue to monitor on telemetry. Continue aspirin, statin No change in the patients neuro examination. WILL GET MRI OF HEAD TODAY 3. Undiagnosed movement disorder/tremor Patient had a resting tremor of bilateral upper extremities on my physical examination yesterday, no tremor noted today. His physical examination is concerning for possible parkinsons disease. Carbidopa/Levodopa started. As per THE RECORDS the patient was evaluated for seizures at [facility]. Neurology following. Continue gabapentin. Continue Xanax. Continue PT 4. Hypertension Patient currently on propanolol 3 times daily. Blood pressures currently under control. We will continue to monitor his blood pressure and adjust his medications if needed. DVT prophylaxis, the patient is currently on heparin. Discharge planning, Patient will need rehab once he is ready for discharge. WILL GET MRI OF HEAD TODAY Code Status: FULL CODE Discussed Condition With: RN AND PT AND CM Discharge Planning: PENDING IMPROVEMENT IN MOVEMENT
--- NOTE | 2018-05-27 13:42 | MR ---
EXAM DATE: 05/27/2018 1:19 PM EST AGE/SEX: 58 years / Male INDICATIONS: CVA. Left sided weakness. CLINICAL DATA: This is the patient's initial encounter. Patient reports that signs and symptoms have been present for 1 day and indicates a pain score of 6/10. MEDICAL/SURGICAL HISTORY: Hypertension. . Aortic replacement COMPARISON: [facility] [place]/O CONTRAST, 05/10/2018. . TECHNIQUE: Multiplanar, multisequence examination of the brain was performed without contrast. FINDINGS: Cerebrum: There is mild generalized atrophy with ventricular size within normal limits given the degr ee of atrophy. No midline shift, mass lesion, hemorrhage or acute infarction. No extraaxial fluid c ollections are seen. The pituitary gland and suprasellar cistern are normal in configuration. Innume rable punctate areas of susceptibility artifact are identified within the cerebrum bilaterally. White Matter: In the right frontal high convexity in the centrum semiovale and adjacent to the centr al sulcus, there is an ovoid area of increased FLAIR and T2 signal. There is minimal white matter sig nal change in the left centrum semiovale. Posterior Fossa: The cerebellum and brainstem demonstrate no acute abnormality. The 4th ventricle is midline. The cerebellopontine angle is within normal limits. The cerebellar tonsils are normal in p osition. Diffusion Imaging: There is increased diffusion signal within the 11 mm area of white matter signal change in the right centrum semiovale. This mostly represents T2 shine through but the central aspect demonstrates decreased ADC signal. Extracranial: The visualized sinuses are clear. CONCLUSION: 1. There is abnormal signal in the right centrum semiovale measuring 11 mm. The central aspect of th is abnormality demonstrates restricted diffusion suggesting that this could represent a recent area o f ischemia. However, most of the lesion has features indicating T2 shine through indicating that it i s chronic. 2. There are innumerable punctate areas of susceptibility artifact throughout the cerebrum bilateral ly. Suggest a remote blood products. Amyloid angiopathy is one consideration. Electronically signed by: Ángel Franco MD 05/27/2018 1:40 PM EST
[2018-05-27 16:17] LABS: Hemoglobin A1c 5.3 % (4.3-6.0)
[2018-05-27] MEDS: Melatonin 5 MG Tablet PO PRN (20:13)
[2018-05-28] MEDS: Heparin - SQ 10,000 UNITS/ML Vial SQ SCH ×3 (06:13→20:51)
[2018-05-28 07:24] LABS: Baso # (Auto) 0.1 th/mm3 (0.0-0.2); Baso % (Auto) 1.1 % (0.0-2.0); Eos # (Auto) 0.1 th/mm3 (0.0-0.4); Eos % (Auto) 1.4 % (0.0-4.0); Hematocrit 33.1 % (39.0-51.0); Hemoglobin 11.2 gm/dL (13.0-17.0); Lymph # (Auto) 1.4 th/mm3 (1.0-4.8); Lymph % (Auto) 14.6 % (9.0-44.0); Mean Corpuscular HGB Conc 33.9 % (32.0-36.0); Mean Corpuscular Hemoglobin 31.4 pg (27.0-34.0); Mean Corpuscular Volume 92.4 fL (80.0-100.0); Mean Platelet Volume 7.8 fL (7.0-11.0); Mono # (Auto) 0.6 th/mm3 (0.0-0.9); Mono % (Auto) 6.5 % (0.0-8.0); Neut # (Auto) 7.6 th/mm3 (1.8-7.7); Neut % (Auto) 76.4 % (16.0-70.0); Platelet Count 362 th/mm3 (150-450); Red Blood Count 3.58 mil/mm3 (4.50-5.90); Red Cell Distribution Width 13.6 % (11.6-17.2); White Blood Count 9.9 th/mm3 (4.0-11.0)
[2018-05-28] MEDS: ALPRAZolam 0.5 MG Tablet PO PRN ×2 (07:28→20:48)
[2018-05-28 07:59] LABS: Alanine Aminotransferase 37 U/L (12-78); Albumin 2.5 g/dL (3.4-5.0); Anion Gap 5 meq/L (5-15); Aspartate Aminotransferase 21 U/L (15-37); Blood Urea Nitrogen 14 mg/dL (7-18); Calcium 8.2 mg/dL (8.5-10.1); Carbon Dioxide 27.9 meq/L (21.0-32.0); Chloride 109 meq/L (98-107); Glomerular Filtration Rate Greater Than 89 mL/min (>89); Glucose,Random 98 mg/dL (74-106); Magnesium 2.2 mg/dL (1.5-2.5); Phosphorus 3.9 mg/dL (2.5-4.9); Sodium 142 meq/L (136-145)
[2018-05-28 08:01] LABS: Alkaline Phosphatase 102 U/L (45-117); Total Protein 6.6 g/dL (6.4-8.2)
[2018-05-28] MEDS: Docusate Sodium 100 MG Capsule PO SCH ×2 (08:18→20:45)
[2018-05-28] MEDS: Gabapentin 100 MG Capsule PO SCH ×3 (08:18→17:08)
[2018-05-28] MEDS: Furosemide 20 MG Tablet PO SCH (08:18)
[2018-05-28 08:23] LABS: Eosinophils 3 % (0-4); Lymphocytes 15 % (9-44); Metamyelocytes 5 % (0-1); Monocytes 4 % (0-8); Myelocytes 3 % (0-0); Platelet Estimate Normal (Normal); Platelet Morphology Normal (Normal)
--- NOTE | 2018-05-28 11:47 | P.PNIM ---
Subjective Interval history: Chief Complaint: "My butt hurts" History of Present Illness: Mr. Stewart is a 58-year-old male with a history of hypertension, and undiagnosed movement disorder who was transferred back from [facility] where he underwent emergency repair of thoracic aortic dissection on 05/10/2018 (Dr. Ashraf). 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 The patient is seen on the unit shortly after arrival and following extensive [facility]. He reports "my butt hurts" from sitting. He reports no knowledge of having an embolic stroke postoperatively from his thoracic aortic aneurysm repair. He reports his left-sided weakness is chronic for the past 5-6 years from a "pulled pectoral muscle". He does have right upper extremity tremors that seem to be present sometimes and not present at other times and have little association with intention. He denies any recent chest pain, shortness of breath, fevers, chills, nausea, vomiting, or diarrhea. After extensive review of his medical record, I was able to locate his MRI report which showed multiple foci of restricted diffusion, largest in the right posterior frontal lobe measuring approximately 1 cm in greatest diameter with multiple other small foci of restricted diffusion right temporal and occipital, left temporal, high left posterior frontal, and high left parietal suggesting a proximal embolic shower possibly related to patient's recent aortic surgery. Also noted were multiple, at least 10-11, foci of chronic microhemorrhage bilaterally. MRA of head and neck were normal. Dated 05/14/18. 05-24 Patient is laying down in bed with family at bedside. Currently he does not have any complaints. 12-1 Patient laying down in bed. In no acute distress. No resting tremor of his upper extremities on evaluation today. 12-2 SEEN SITTING IN CHAIR WITH FAMILY DENIES ANY NEW LEFT SIDE WEAKNESS- FAMILY STATES IT IS CHRONIC FEELS WEEK NO CURRENT TREMORS 12-3 CONTINUE PT AND OT NOT VERY MOBILE YET DW RN AND PT AND CM AND FAMILY WILL GET MRI HERE FOR COMPLETENESS AM LABS 12-4 WORKING ON MOBILITY TODAY WANTS TRIPLE ANTIBIOTIC FOR SCALP BACK OF HEAD DW RN AND PT MRI IS STABLE AM LABS INCREASE ACTIVITY NEEDS TO EAT BETTER HAS LOW PROTEIN STATUS Physical Exam Vital signs: Vital Signs 05/27/18 12:00 05/27/18 16:00 05/27/18 20:00 Temperature 97.8 F 97.1 F L 98.3 F Pulse Rate 76 72 70 Respiratory Rate 18 16 19 Blood Pressure 124/72 121/73 112/56 L Pulse Oximetry 96 97 97 05/27/18 23:40 05/28/18 00:00 05/28/18 04:00 Temperature 97.7 F 97.4 F L Pulse Rate 76 70 65 Respiratory Rate 18 19 Blood Pressure 109/57 L 108/62 Pulse Oximetry 96 97 Intake & Output 05/27/18 05/28/18 05/28/18 18:59 06:59 18:59 Intake Total 500 / 500 Output Total 1400 / 1400 600 / 600 Balance -1400 / -1400 -100 / -100 Weight 83.7 kg Intake: Oral 500 / 500 Output: Urine 1400 / 1400 600 / 600 Other: Date of Last Bowel Movement 05/27/18 05/27/18 05/27/18 # Bowel Movements 1 Narrative: Awake alert and oriented x3 talkative and cooperative General he is sitting at the chair at the side of the bed HEENT extraocular movements are intact, clear oropharyngeal mucosa, no JVD Cardiovascular S1-S2 audible, vertical well healing wound on the center of the patient's chest. Respiratory clear to auscultation bilaterally Abdomen soft, nontender, nondistended, normal bowel sounds Extremities no edema 2+ distal pulses in bilateral upper and lower extremities Neuro patient moves all 4 extremities, the patient's resting tremors that were observed yesterday have improved. Cerebellar signs are intact. Sensation is intact in both upper and lower extremities. No current resting tremors observed at this time Results - Labs CBC & Chem 7: 05/28/18 06:46 05/28/18 06:46 Laboratory Results - last 24 hr 05/27/18 05/28/18 05/28/18 04:38 06:46 06:46 WBC 9.9 RBC 3.58 L Hgb 11.2 L Hct 33.1 L MCV 92.4 MCH 31.4 MCHC 33.9 RDW 13.6 Plt Count 362 MPV 7.8 Prelim Diff (Auto) Slide review pending Neut % (Auto) 76.4 H Lymph % (Auto) 14.6 [place] % (Auto) 6.5 Eos % (Auto) 1.4 Baso % (Auto) 1.1 Neut # (Auto) 7.6 Lymph # (Auto) 1.4 [place] # (Auto) 0.6 Eos # (Auto) 0.1 Baso # (Auto) 0.1 WBC Differential Manual diff final Seg Neuts % (Manual) 65 Band Neuts % (Manual) 4 Lymphocytes % (Manual) 15 Monocytes % (Manual) 4 Eosinophils % (Manual) 3 Basophils % (Manual) 1 Metamyelocytes % (Man) 5 H Myelocytes % (Man) 3 H Abs Neuts (Manual) 7.6 Differential Comment . Platelet Estimate Normal Platelet Morphology Normal Sodium 142 Potassium 4.0 Chloride 109 H Carbon Dioxide 27.9 Anion Gap 5 BUN 14 Creatinine 0.71 Estimated GFR Greater than 89 Random Glucose 98 Hemoglobin A1c 5.3 Calcium 8.2 L Phosphorus 3.9 Magnesium 2.2 Total Bilirubin 0.3 AST 21 ALT 37 Alkaline Phosphatase 102 Total Protein 6.6 Albumin 2.5 L - Imaging Impressions Head MRI 05/27/18 00:00 CONCLUSION: 1. There is abnormal signal in the right centrum semiovale measuring 11 mm. The central aspect of this abnormality demonstrates restricted diffusion suggesting that this could represent a recent area of ischemia. However, most of the lesion has features indicating T2 shine through indicating that it is chronic. 2. There are innumerable punctate areas of susceptibility artifact throughout the cerebrum bilaterally. Suggest a remote blood products. Amyloid angiopathy is one consideration. Assessment and Plan - Plan Patient is a 58-year-old male with a diagnosis of hypertension, undiagnosed movement disorder. The patient was transferred back from [facility] where he underwent emergency repair of a thoracic aortic dissection on 05/10/[address] Ashraf. 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 As per documentation MRI report shows restricted areas of diffusion largest in the right posterior frontal lobe measuring approximately 1 cm as well as multiple other areas of the brain. MRA of the head and neck were normal. 1. Status post thoracic aortic aneurysm repair on 05/10/2018 Procedure done at [facility] by Dr. Ashraf. The patient vital signs and hemoglobin are stable. No significant change from yesterday. Patient was evaluated by speech therapy, recommendations are thin liquids and regular diet. Continue aspirin, statin. 2. Embolic CVA Patient's MRI showed the findings mentioned above. Physical therapy and occupational therapy evaluation is pending Continue to monitor on telemetry. Continue aspirin, statin No change in the patients neuro examination. WILL GET MRI OF HEAD TODAY 3. Undiagnosed movement disorder/tremor Patient had a resting tremor of bilateral upper extremities on my physical examination yesterday, no tremor noted today. His physical examination is concerning for possible parkinsons disease. Carbidopa/Levodopa started. As per THE RECORDS the patient was evaluated for seizures at [facility]. Neurology following. Continue gabapentin. Continue Xanax. Continue PT 4. Hypertension Patient currently on propanolol 3 times daily. Blood pressures currently under control. We will continue to monitor his blood pressure and adjust his medications if needed. DVT prophylaxis, the patient is currently on heparin. Discharge planning, Patient will need rehab once he is ready for discharge. WILL GET MRI OF HEAD TODAY--MRI STABLE AT THIS TIME Code Status: FULL CODE Discussed Condition With: RN AND PT AND FAMILY AND CM Discharge Planning: PENDING IMPROVEMENT IN MOVEMENT
[2018-05-28] MEDS: Acetaminophen 325 MG Tablet PO PRN (16:21)
[2018-05-29] MEDS: Heparin - SQ 10,000 UNITS/ML Vial SQ SCH ×4 (01:19→21:16)
[2018-05-29] MEDS: Acetaminophen 325 MG Tablet PO PRN ×2 (02:44→23:10)
[2018-05-29] MEDS: Furosemide 20 MG Tablet PO SCH (09:47)
[2018-05-29] MEDS: Gabapentin 100 MG Capsule PO SCH ×3 (09:47→17:32)
[2018-05-29] MEDS: Docusate Sodium 100 MG Capsule PO SCH ×2 (09:48→21:12)
--- NOTE | 2018-05-29 15:29 | P.PNIM ---
Subjective Interval history: Patient reports he is independently ambulating with a walker. He is still having tremors worse with physical activity. Physical Exam Vital signs: Last Vital Signs Temp 97.6 F 05/29/18 12:00 Pulse 68 05/29/18 12:00 Resp 16 05/29/18 12:00 BP 124/74 05/29/18 12:00 Pulse Ox 98 05/29/18 12:00 Intake & Output 05/27/18 05/28/18 05/29/18 05/30/18 06:59 06:59 06:59 06:59 Intake Total 2880 / 2880 500 / 500 900 / 900 Output Total 4450 / 4450 1999 / 1999 Balance -1570 / -1570 -1500 / -1500 900 / 900 Weight 82.8 kg 83.7 kg 83.7 kg Narrative: General he is sitting at the chair at the side of the bed, well-nourished well- developed white male no acute distress Cardiovascular S1-S2 audible, vertical well healing wound on the center of the patient's chest. Respiratory clear to auscultation bilaterally Abdomen soft, nontender, nondistended, normal bowel sounds Extremities no edema Neuro patient moves all 4 extremities, the patient's resting tremors that were observed today and persist with movement. Mostly so in the right hand and arm, cerebellar signs are intact. Sensation is intact in both upper and lower extremities. Results Labs CBC & Chem 7: 05/28/18 06:46 05/28/18 06:46 Assessment and Plan (1) Cerebrovascular accident, embolic: Code(s): I63.9 - Cerebral infarction, unspecified Status: Acute (2) S/P thoracic aortic aneurysm repair: Code(s): Z98.890 - Other specified postprocedural states; Z86.79 - Personal history of other diseases of the circulatory system Status: Chronic (3) Parkinson disease: Code(s): G20 - Parkinson's disease Status: Acute Plan Patient is a 58-year-old male with a diagnosis of hypertension, undiagnosed movement disorder. The patient was transferred back from [facility] where he underwent emergency repair of a thoracic aortic dissection on 05/10/[address] Ashraf. 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 As per documentation MRI report shows restricted areas of diffusion largest in the right posterior frontal lobe measuring approximately 1 cm as well as multiple other areas of the brain. MRA of the head and neck were normal. 1. Status post thoracic aortic aneurysm repair on 05/10/2018 Procedure done at [facility] by Dr. Ashraf. The patient vital signs and hemoglobin are stable. No significant change from yesterday. Patient was evaluated by speech therapy, recommendations are thin liquids and regular diet. Continue aspirin, statin, niacin, propanolol, Lasix and potassium. 2. Embolic CVA Patient's MRI showed the findings mentioned above. Repeat MRI shows stability. Status post physical therapy and occupational therapy evaluation is pending Continue to monitor on telemetry. Continue aspirin, statin, niacin 3. Undiagnosed movement disorder/tremor with possible Parkinson's disease per neurology. Patient had a resting tremor of bilateral upper extremities on my physical examination yesterday, no tremor noted today. His physical examination is concerning for possible parkinsons disease. Carbidopa/Levodopa started and will increase dosing to 3 times daily. As per THE RECORDS the patient was evaluated for seizures at [facility]. Neurology following. Continue gabapentin. Continue Xanax. Continue PT 4. Hypertension, chronic essential Patient currently on propanolol 3 times daily. Blood pressures currently under control. We will continue to monitor his blood pressure and adjust his medications if needed. DVT prophylaxis, the patient is currently on heparin. Discharge Planning: Do not qualify for inpatient rehab. No apparent source at this time will discharge in the care of his brother and [id number] with continued outpatient physical therapy. Progress Note: Quality VTE Deep Vein Thrombosis/Pulmonary Embolism Present on Admission: No
[2018-05-29] MEDS: Melatonin 5 MG Tablet PO PRN (23:10)
[2018-05-30 05:31] VITALS: TEMP 97.9
[2018-05-30] MEDS: Heparin - SQ 10,000 UNITS/ML Vial SQ SCH (06:10)
[2018-05-30 08:22] VITALS: BP 123/70; PULSE 73; RESP 17; O2SAT 97
[2018-05-30] MEDS: Gabapentin 100 MG Capsule PO SCH (09:23)
[2018-05-30] MEDS: Furosemide 20 MG Tablet PO SCH (09:24)
[2018-05-30] MEDS: Docusate Sodium 100 MG Capsule PO SCH (09:24)
--- NOTE | 2018-05-30 10:06 | P.DS ---
DS: Providers Date of admission: 05/24/18 02:20 Primary care physician: No Primary Care Physician Consults: 05/24/18 05:48 Consult to Neurology Routine Consulting Provider: Lizabeth Mercado Reason for Consultation: undiagnosed tremors/post-op thoracic aortic aneurysm repair 05/10 with embolic stroke dx 05/14 - transferred back from Notified:: Service Spoke with:: Suly Date Notified:: 05/24/18 Time Notified:: 06:20 Ordering Provider: SON Brief History from admission: Mr. Stewart is a 58-year-old male with a history of hypertension, and undiagnosed movement disorder who was transferred back from [facility] where he underwent emergency repair of thoracic aortic dissection on 05/10/2018 (Dr. Ashraf). 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 The patient is seen on the unit shortly after arrival and following extensive record review from [facility]. He reports "my butt hurts" from sitting. He reports no knowledge of having an embolic stroke postoperatively from his thoracic aortic aneurysm repair. He reports his left-sided weakness is chronic for the past 5-6 years from a "pulled pectoral muscle". He does have right upper extremity tremors that seem to be present sometimes and not present at other times and have little association with intention. He denies any recent chest pain, shortness of breath, fevers, chills, nausea, vomiting, or diarrhea. After extensive review of his medical record, I was able to locate his MRI report which showed multiple foci of restricted diffusion, largest in the right posterior frontal lobe measuring approximately 1 cm in greatest diameter with multiple other small foci of restricted diffusion right temporal and occipital, left temporal, high left posterior frontal, and high left parietal suggesting a proximal embolic shower possibly related to patient's recent aortic surgery. Also noted were multiple, at least 10-11, foci of chronic microhemorrhage bilaterally. MRA of head and neck were normal. Dated 05/14/18. DS: Diagnosis Discharge Diagnosis (1) Cerebrovascular accident, embolic: Status: Acute (2) S/P thoracic aortic aneurysm repair: Status: Chronic (3) Parkinson disease: Status: Acute DS: Summary 58-year-old white male with a diagnosis of hypertension, tremors likely with underlying Parkinson's disease was transferred back from [facility] where he underwent emergent repair of a thoracic aortic dissection on [address] Ashraf. Patient had developed a postoperative embolic cerebrovascular accident with left-sided weakness and was transferred back upon stabilization on May 24. He has done well postoperatively and is currently on aspirin, statin, niacin, propanolol, Lasix and potassium. A repeat MRI of the brain done here shows stability of the stroke. Neurology evaluate the patient and diagnosed the patient with movement disorder and tremor with possible diet gnosis of Parkinson's disease. He was started on carbidopa levodopa and taking it 3 times a day. He is to continue with gabapentin. Patient continue physical therapy here during the hospitalization and is ambulating with assistance of a rolling walker. At this time, patient family has declined home health care as recommended and brother and sister-in- law will be caring for the patient upon his discharge. At this time, patient has gained maximum benefit from hospitalization is ready to be transitioned home. Time Spent with Patient Total time spent providing and/or coordinating discharge services: Less than 30 minutes Quality: VTE Deep Vein Thrombosis/Pulmonary Embolism Present on Admission: No Exam Narrative Exam Narrative: GENERAL: This is a well-nourished, well-developed patient, in no apparent distress. CARDIOVASCULAR: Regular rate and rhythm RESPIRATORY: Clear to auscultation. Breath sounds equal bilaterally. No wheezes , rales, or rhonchi. GASTROINTESTINAL: Abdomen soft, non-tender, nondistended. Normal active bowel sounds MUSCULOSKELETAL: Extremities without clubbing, cyanosis, or edema. NEURO: Alert & Oriented x3 to person, place, time, ambulating with assistance of walker. Mild right arm tremor Results Impressions ITS Impressions Head MRI 05/27/18 00:00 CONCLUSION: 1. There is abnormal signal in the right centrum semiovale measuring 11 mm. The central aspect of this abnormality demonstrates restricted diffusion suggesting that this could represent a recent area of ischemia. However, most of the lesion has features indicating T2 shine through indicating that it is chronic. 2. There are innumerable punctate areas of susceptibility artifact throughout the cerebrum bilaterally. Suggest a remote blood products. Amyloid angiopathy is one consideration. Discharge Plan Discharge Disposition Patient Disposition: Discharge Home Discharge Condition Condition: Good Discharge Order Discharge Orders: Discharge Order (Routine); Ordered 05/30/18 Ordered By: Amy Brantley Discharge Details Anticipated Discharge Date: 05/30/18 Physicians Team Primary Care Provider: Primary Lucero Grossman Attending Provider: Amy Brantley Other Providers: Lizabeth Mercado Rxs /Orders / Referrals /Forms Prescriptions: New atorvastatin 40 mg Tablet 40 mg PO HS Qty: 30 RF: 1 potassium chloride [Klor-Con 10] 10 mEq Tablet Extended Release 20 meq PO DAILY Qty: 30 RF: 1 niacin 100 mg Tablet 50 mg PO HS Qty: 30 RF: 1 aspirin 81 mg Tablet,Chewable 81 mg PO DAILY Qty: 30 RF: 0 furosemide 20 mg Tablet 20 mg PO DAILY Qty: 30 RF: 1 gabapentin 100 mg Capsule 200 mg PO TID Qty: 90 RF: 0 propranolol 20 mg Tablet 20 mg PO TID Qty: 90 RF: 1 carbidopa-levodopa 25-100 mg Tablet 1 tab PO TID Qty: 90 RF: 1 tramadol [Ultram] 50 mg tablet 50 mg PO Q6H PRN (Reason: Acute Pain Exception) Qty: 28 RF: 0 Referrals: Primary Care Lucero Weber [Primary Care Provider] - See Instructions Post Discharge Care Plan Care Plan Goals: Discharge Care Plan Goals for Stroke You have been diagnosed with or have a high risk for a stroke, or a TIA ( transient ischemic attack). During a stroke, blood stops flowing to part of your brain. This can damage areas in the brain that control other parts of the body. Symptoms after a stroke depend on which part of the brain has been affected. Directions to Meet your Goals: 1. Diet: Based on your situation, your doctor will direct you to make changes in your diet. Some of the changes may include: * Reducing the amount of fat and cholesterol you eat * Don't add salt to your food. * Eat more fresh vegetables and fruits * Eat more lean proteins, such as fish, poultry, and beans and peas (legumes). Cut down on red meat & processed meats * Use low-fat dairy products * Limit vegetable oils and nut oils. Avoid any food that has hydrogenated listed in its ingredients. * Limit sweets and processed foods such as chips, cookies, and baked goods 2. Prevent Falls/Injury: You may be at risk of falling. Activity: * Keep your surrounding clutter free to help you walk more easily. * Your doctor and therapist may decide if you need an assistive device to walk safely. Shower/Bathing: * Test the water temperature with a hand or foot that was not affected by the stroke. * Use grab bars, a shower seat, a hand-held showerhead, and a long-handled brush. Getting Dressed: * Dress while sitting, starting with the affected side or limb. * Wear shirts that pull easily over your head. Wear pants or skirts with elastic waistbands. * Use zippers with loops attached to the pull tabs. 3. Lifestyle Modifications: * Take your medicines exactly as prescribed. Dont skip doses. * Begin an exercise program as directed by your doctor. You can benefit from simple activities such as walking or gardening. * Limit how much alcohol you drink. Men should have no more than 2 alcoholic drinks a day. Women should limit themselves to 1 alcoholic drink per day. * Know your cholesterol level. Follow your doctor's recommendations about how to keep cholesterol under control. * If you are a smoker, quit now. Joining a stop-smoking program will improve your chances of success. Ask your doctor for medicines or other methods to help you quit. * Learn stress management techniques to help you deal with stress in your home and work life. 4. Stroke Risk Factors: Once youve had a stroke, youre at greater risk for another one. Listed below are some other factors that can increase your risk for a stroke: * High blood pressure and High Cholesterol * Cigarette or cigar smoking * Diabetes * Carotid or other artery disease * Atrial fibrillation, atrial flutter, or other heart disease * Not being physically active * Obesity * Certain blood disorders such as sickle cell anemia * Drinking too much alcohol * Abusing street drugs * Race * Gender * Family history of stroke * Diet high in salty, fried, or greasy foods 5. Follow-up: * Keep your medical appointments. Close follow-up is important to stroke rehabilitation and recovery. * Some medicines require blood tests to check for progress or problems. Keep follow-up appointments for any blood tests ordered by your providers. Call 911 right away if you have: Weakness, tingling, or loss of feeling on one side of your face or body Sudden double vision or trouble seeing in one or both eyes Sudden trouble talking or slurred speech Trouble understanding others Sudden, severe headache Dizziness, loss of balance, or a sense of falling Blackouts or seizures F.A.S.T. is an easy way to remember the signs of stroke. When you see these signs, you know that you need to call 911 fast. F.A.S.T. stands for: * F is for face drooping. One side of the face is drooping or numb. When the person smiles, the smile is uneven. * A is for arm weakness. One arm is weak or numb. When the person lifts both arms at the same time, one arm may drift downward. * S is for speech difficulty. You may notice slurred speech or trouble speaking. The person can't repeat a simple sentence correctly when asked. * T is for time to call 911. If someone shows any of these symptoms, even if they go away, call 911 right away. Make note of the time the symptoms first appeared. Discharge Interventions Interventions: Last Done: 05/28/18 16:46
== END 2018-05-30 11:18 | disposition home or self-care (01) ==
LOC: N07 05-24 02:20
PROVIDERS: ADMIT Family Medicine; ATTEND Family Medicine
DX: I69.354 Hemiplegia and hemiparesis following cerebral infarction affecting left non-dominant side; Z82.3 Family history of stroke; Z98.890 Other specified postprocedural states; G20 Parkinson's disease; G25.9 Extrapyramidal and movement disorder, unspecified; Z82.49 Family history of ischemic heart disease and other diseases of the circulatory system; Z87.891 Personal history of nicotine dependence; I97.821 Postprocedural cerebrovascular infarction following other surgery; I10 Essential (primary) hypertension; F41.9 Anxiety disorder, unspecified